=== PATIENT | female | born 1995 | race Caucasian/White ===

== ENCOUNTER 2018-11-04 14:28 | Emergency (ER) | payer MEDICAID ==
[~2018-11-04] VITALS: Ht 154.9 cm; Wt 54.5 kg
[2018-11-04 14:31] VITALS: Ht 154.9 cm; Wt 54.5 kg
--- NOTE | 2018-11-04 16:40 | ERD ---
ER Documentation Chief Complaint Chief Complaint VAG BLEED , ONSET TODAY , 12 WEEKS PREG HPI 23-year-old female with a EGA 12 weeks by LMP 08/13/19, presents the emergency department, complaining of vaginal bleeding that started today. The bleeding is mild, intermittent, associated with colicky pelvic pain. The patient has established care at [facility] she denies fevers, no chills, no abdominal pain, no urinary symptoms. ROS All systems reviewed and are negative except as per history of present illness. Allergies Allergies: Coded Allergies: No Known Allergy (Unverified , 11/04/18) FmHx Family History: No diabetes, No coronary disease Physical Exam Vitals Vital Signs Date Temp Pulse Resp B/P (MAP) Pulse Ox O2 O2 Flow FiO2 Time Delivery Rate 11/04/18 98.0 80 16 102/56 99 Room Air 18:44 (71) 11/04/18 97.8 89 16 122/67 99 14:31 (85) Physical Exam Const: No acute distress Head: Atraumatic Eyes: Normal Conjunctiva ENT: Normal External Ears, Nose and Mouth. Neck: Full range of motion. No meningismus. Resp: Clear to auscultation bilaterally Cardio: Regular rate and rhythm, no murmurs Abd: Soft, non tender, non distended. Normal bowel sounds Skin: No petechiae or rashes Back: No midline or flank tenderness Ext: No cyanosis, or edema Neur: Awake and alert Psych: Normal Mood and Affect Result Diagram: 11/04/18 9298 Results 24 hrs Laboratory Tests Test 11/04/18 16:57 11/04/18 17:05 11/04/18 17:09 11/04/18 17:11 White Blood Count 10.8 10^3/ul Red Blood Count 4.05 10^6/ul Hemoglobin 12.5 g/dl Hematocrit 35.8 % Mean Corpuscular 88.4 fl Volume Mean Corpuscular 30.9 pg Hemoglobin Mean Corpuscular 34.9 g/dl Hemoglobin Concent Red Cell 11.6 % Distribution Width Platelet Count 289 10^3/UL Mean Platelet 10.6 fl Volume Immature 0.500 % Granulocytes % Neutrophils % 66.9 % Lymphocytes % 25.4 % Monocytes % 6.1 % Eosinophils % 0.8 % Basophils % 0.3 % Nucleated Red Blood 0.0 /100WBC Cells % Immature 0.050 10^3/ul Granulocytes # Neutrophils # 7.2 10^3/ul Lymphocytes # 2.7 10^3/ul Monocytes # 0.7 10^3/ul Eosinophils # 0.1 10^3/ul Basophils # 0.0 10^3/ul Nucleated Red Blood 0.0 10^3/ul Cells # Bedside Urine pH 7.0 7.0 (LAB) Bedside Urine Trace 1+ Protein (LAB) Bedside Urine Negative Negative Glucose (UA) Bedside Urine 4+ 4+ Ketones (LAB) Bedside Urine Blood 2+ 3+ Bedside Urine Negative Negative Nitrite (LAB) Bedside Urine Negative Negative Leukocyte Esterase (L POC Beta HCG, POSITIVE Qualitative Patient: EVAN THAKKAR : 1995 Age: 23 Sex: F MR #: [id number] DOS: 11/04/18 1638 Ordering MD: HARINI WOLF MD Location: FTE Room/Bed: PROCEDURE: US OB. CLINICAL INDICATION: Vaginal bleeding in early . TECHNIQUE: Transabdominal views of the pelvis are available for review. COMPARISON: No prior studies are available for comparison. FINDINGS: A single intrauterine gestational sac is evident. [place]-rump length: 7.0 cm Gestational sac diameter: 4.9 cm heart rate: 166 beats per minute. Ultrasound estimated gestational age: 12 weeks 1 day No ovarian or adnexal mass lesion is seen. There is no free fluid. The corpus luteum lies on the left. IMPRESSION: 1. Single live intrauterine with an estimated gestational age of 12 weeks 1 day. This yields an estimated due date of 05/18/2019, concordant with menstrual dates. RPTAT:AAJJ Physician Yolanda Date Time Electronically viewed and signed by Physician Yolanda on 11/04/2018 18:05 Procedures/MDM Vital signs stable, Physical exam unremarkable. Differential diagnosis include but not limited to: UTI, threatening , incomplete versus complete , ectopic , physiologic implantation bleeding, molar . Physical examination and clinical presentation most likely consistent with threatening . During the ED course the patient remained hemodynamically stable and asymptomatic. Results and clinical impression discussed with patient who agrees with management. The patient is stable to be treated outpatient and will be discharged home with close monitoring and follow-up in 2 days with her primary physician. Bed rest and pelvic rest recommended until further medical evaluation. The patient was instructed regarding the outcomes and the potential complicati ons like severe bleeding and . If the patient presents severe bleeding or pain, she was instructed to return to the hospital immediately. Disclaimer: Inadvertent spelling and grammatical errors are likely due to EHR/dictation software use and do not reflect on the overall quality of patient care. Also, please note that the electronic time recorded on this note does not necessarily reflect the actual time of the patient encounter. Departure Diagnosis: Primary Impression: Vaginal bleeding in patient at less than 20 weeks gestation Condition: Stable Additional Instructions: Thank you very much for allowing us to participate in your care. Your health and safety is our top priority at [facility]. Call your primary care doctor TOMORROW for an appointment during the next 2-4 days and bring all the information and medications prescribed. Have prescriptions filled and follow precisely the directions on the label. If the symptoms get worse and your provider is unavailable, return to the Emergency Department immediately. HARINI WOLF MD Nov 04, 2018 16:40
[2018-11-04 18:44] VITALS: BP 102/56; PULSE 80; RESP 16
== END 2018-11-04 18:45 | disposition home or self-care (01) ==
LOC: FTE 14:28
DX: O20.9 Hemorrhage in early pregnancy, unspecified (principal); Z3A.12 12 weeks gestation of pregnancy
CPT/HCPCS: 36415; 76801; 76817; 81003; 81025; 85025; Z7502

== ENCOUNTER 2018-11-22 17:00 | Emergency (ER) | payer MEDICAID ==
[~2018-11-22] VITALS: Wt 54.7 kg
--- NOTE | 2018-11-22 18:21 | ERD ---
ER Documentation Chief Complaint Chief Complaint 16wks ; VB xfew days. ref for US HPI 23-year-old female presents referred by OB for some vaginal spotting. She is 16 weeks by dates. She has no pain. She has no dysuria, fevers, additional symptoms. She is a G2 para 1. She states she is Rh+. ROS All systems reviewed and are negative except as per history of present illness. Allergies Allergies: Coded Allergies: No Known Allergy (Unverified , 11/04/18) PMhx/Soc Medical and Surgical Hx: pt denies Medical Hx, pt denies Surgical Hx Hx Alcohol Use: No Hx Substance Use: No Hx Tobacco Use: No Physical Exam Vitals Vital Signs Date Temp Pulse Resp B/P (MAP) Pulse Ox O2 O2 Flow FiO2 Time Delivery Rate 11/22/18 99.3 71 18 92/52 (65) 98 17:09 Physical Exam Const: No acute distress Head: Atraumatic Eyes: Normal Conjunctiva ENT: Normal External Ears, Nose and Mouth. Neck: Full range of motion. No meningismus. Resp: Clear to auscultation bilaterally Cardio: Regular rate and rhythm, no murmurs Abd: Soft, non tender, non distended. Normal bowel sounds Skin: No petechiae or rashes Back: No midline or flank tenderness Ext: No cyanosis, or edema Neur: Awake and alert Psych: Normal Mood and Affect Procedures/MDM Pelvic ultrasound shows 16-week with placenta previa. There is possibly slight abruption. Otherwise no acute abnormalities are no adnexal masses or signs of ectopic. Since with some vaginal spotting with no pain for last few days. She has good OB follow-up. She has a live 16-week . She will discharged home with primary care follow-up return precautions for fevers, worsening bleeding, pain, new worsening symptoms otherwise as directed. Doubt appendicitis or other causes of abdominal pain. Departure Diagnosis: Primary Impression: Vaginal bleeding in patient at less than 20 weeks ges... Condition: Stable Patient Instructions: Bleeding During Early Referrals: RODERICK MCKEON MD Additional Instructions: emabarazo normal horita. Cheque otro vez con spain doctor primario en el proximo fitzgerald or regresa para mas o nueva simptomas. BRETT SARGENT MD Nov 22, 2018 18:21
[2018-11-22 18:37] VITALS: BP 100/60; PULSE 73; RESP 20
== END 2018-11-22 18:39 | disposition home or self-care (01) ==
LOC: FTE 17:00
DX: O20.9 Hemorrhage in early pregnancy, unspecified (principal); Z3A.16 16 weeks gestation of pregnancy
CPT/HCPCS: 76805; Z7502

== ENCOUNTER 2019-03-21 14:41 | Emergency (ER) | payer MEDICAID ==
[~2019-03-21] VITALS: Wt 67.2 kg
[2019-03-21 14:49] VITALS: BP 101/55; PULSE 84; RESP 20; Wt 67.2 kg
[2019-03-21] MEDS ORDERED: ACETAMINOPHEN 500 MG TAB PO STA (16:29)
[2019-03-21] MEDS ORDERED: ACET325T33 PO (16:31)
[2019-03-21] MEDS ORDERED: CEPH-443 PO (16:33)
--- NOTE | 2019-03-21 17:11 | ERD ---
ER Documentation Chief Complaint Chief Complaint SENT BY CLINIC FOR CP, 33 WKS PREG. PT. STATES CP X1 YEAR, DENIES PAIN NOW HPI History of Present Illness: 23-year-old female who reports that she is approximately 33 weeks coming in today due to complaint of chest pain. Patient denies pain at this time. Patient sent by Dr. SESAY CAR DISPATCHER. Patient reports pain is been present intermittently for the past year but has noticed increased frequency. Denies anxiety or stress at home. Denies shortness of breath, palpitations. At home pharmacological/nonpharmacological treatment for symptoms: Denies Denies social concerns; Denies recent foreign travel ROS All systems reviewed and are negative except as per history of present illness. Medications Home Meds Active Scripts Cephalexin* (Keflex*) 500 Mg Capsule, 500 MG PO TID for URINE INFECTION for 7 Days, CAP Prov:KYLIE WHITLOCK V ADJUNCT ENGLISH INSTRUCTOR 03/21/19 Acetaminophen* (Tylenol*) 325 Mg Tablet, 2 TAB PO Q6 PRN for PAIN AND OR ELEVATED TEMP, #30 TAB Prov:KYLIE WHITLOCK NP 03/21/19 Allergies Allergies: Coded Allergies: No Known Allergy (Unverified , 11/04/18) PMhx/Soc Medical and Surgical Hx: pt denies Medical Hx, pt denies Surgical Hx Hx Alcohol Use: No Hx Substance Use: No Hx Tobacco Use: No Smoking Status: Never smoker FmHx Family History: No diabetes, No coronary disease Physical Exam Vitals Vital Signs Date Temp Pulse Resp B/P (MAP) Pulse Ox O2 O2 Flow FiO2 Time Delivery Rate 03/21/19 98.4 84 20 101/55 98 14:49 (70) Physical Exam Const: No acute distress, afebrile Head: Atraumatic Eyes: Normal Conjunctiva ENT: Normal External Ears, Nose and Mouth. Neck: Full range of motion. No meningismus. Resp: Clear to auscultation bilaterally Cardio: Regular rate and rhythm, no murmurs Abd: Soft, non tender, non distended. Normal bowel sounds. No guarding, no masses, no rigidity. Palpable fundus. Skin: No petechiae or rashes Back: No midline or flank tenderness Ext: No cyanosis, or edema Neur: Awake and alert x3, speaking in clear sentences, no focal deficits or facial asymmetry Psych: Normal Mood and Affect Result Diagram: 03/21/19 1526 03/21/19 1526 Results 24 hrs Laboratory Tests Test 03/21/19 15:26 White Blood Count 12.1 10^3/ul Red Blood Count 3.22 10^6/ul Hemoglobin 10.1 g/dl Hematocrit 29.3 % Mean Corpuscular Volume 91.0 fl Mean Corpuscular Hemoglobin 31.4 pg Mean Corpuscular Hemoglobin Concent 34.5 g/dl Red Cell Distribution Width 12.5 % Platelet Count 265 10^3/UL Mean Platelet Volume 10.5 fl Immature Granulocytes % 3.400 % Neutrophils % 65.8 % Lymphocytes % 20.4 % Monocytes % 8.6 % Eosinophils % 1.1 % Basophils % 0.7 % Nucleated Red Blood Cells % 0.0 /100WBC Immature Granulocytes # 0.410 10^3/ul Neutrophils # 7.9 10^3/ul Lymphocytes # 2.5 10^3/ul Monocytes # 1.0 10^3/ul Eosinophils # 0.1 10^3/ul Basophils # 0.1 10^3/ul Nucleated Red Blood Cells # 0.0 10^3/ul Urine Color YELLOW Urine Clarity SLIGHTLY CLOUDY Urine pH 8.0 Urine Specific [place] 1.009 Urine Ketones NEGATIVE mg/dL Urine Nitrite NEGATIVE mg/dL Urine Bilirubin NEGATIVE mg/dL Urine Urobilinogen NEGATIVE mg/dL Urine Leukocyte Esterase 2+ Mario/ul Urine Microscopic RBC 0 /HPF Urine Microscopic WBC 10 /HPF Urine Squamous Epithelial Cells FEW /HPF Urine Hemoglobin NEGATIVE mg/dL Urine Glucose NEGATIVE mg/dL Urine Total Protein NEGATIVE mg/dl Sodium Level 139 mmol/L Potassium Level 3.5 mmol/L Chloride Level 107 mmol/L Carbon Dioxide Level 23 mmol/L Anion Gap 9 Blood Urea Nitrogen 4 mg/dl Creatinine 0.40 mg/dl Est Glomerular Filtrat Rate mL/min > 60 mL/min Glucose Level 85 mg/dl Calcium Level 9.7 mg/dl Total Bilirubin 0.4 mg/dl Direct Bilirubin 0.00 mg/dl Indirect Bilirubin 0.4 mg/dl Aspartate Amino Transf (AST/SGOT) 18 IU/L Alanine Aminotransferase (ALT/SGPT) 19 IU/L Alkaline Phosphatase 58 IU/L Troponin I < 0.012 ng/ml Total Protein 7.3 g/dl Albumin 3.9 g/dl Globulin 3.40 g/dl Albumin/Globulin Ratio 1.14 Beta HCG, Quantitative 81303.0 mIU/ml Current Medications Medications Dose Sig/[place] Start Time Status Last (Trade) Ordered Route PRN Stop Time Admin Dose Reason Admin 1,000 mg ONCE STAT 03/21/19 DC Acetaminophen PO 16:29 03/21/19 (Tylenol 16:31 Tab) Procedures/MDM ED COURSE: ED course includes a thorough examination and history. The patient was stable throughout ED course. I kept the patient and/or family informed of laboratory and diagnostic imaging results throughout the ED course. ED course for heart tones. LABS: CBC: no e/o of systemic infection or severe anemia CMP: no e/o severe acidosis, alkalosis, renal failure, diabetic ketoacidosis, liver disease Beta quantitative: 18, 856 Urinalysis positive for 2+ leukocyte esterase, 10 WBC Troponin negative. MEDICATIONS GIVEN IN ER: None DIAGNOSTIC IMAGING: EKG: Read by ED attending physician. EKG shows normal sinus rhythm at a rate of 84. No arrhythmias, acute ST elevations or T wave changes were noted. PROCEDURES: None. MEDICAL DECISION MAKING: Low suspicion for life-threatening medical emergency. Low suspicion for acute cardiac emergency. Low suspicion for acute pulmonary emergency including pulmonary embolism. Otherwise healthy patient presenting with constellation of symptoms likely representing nonspecific chest pain and urinary tract infection as characterized by history, physical exam findings, lab findings, imaging findings. Patient reassessment @ 1640: Patient with mild pain. UNReproducible pain with palpation. Nursing staff states that they do not have equipment to do heart tones, so patient discharged to labor and delivery for monitoring. Patient hemodynamically stable without complaint of abdominal pain. No respiratory distress, otherwise relatively well appearing and nontoxic. Disposition given. Patient educated on diagnoses, prescriptions, follow-up care, return precautions. Strict return precautions given for worsening condition; questions answered discharge. Patient verbalizes understanding of discharge instructions. PRESCRIPTIONS FOR HOME: Cephalexin, Acetaminophen DISPOSITION: DISCHARGE At this time, patient is stable for discharge and outpatient management. I have instructed the patient to follow-up with his/her primary care physician in 1-2 days. I have discussed with the patient the possibility of needing to see a specialist for further workup and imaging studies if symptoms persist. I have instructed the patient to promptly return to the ER for any new or worsening symptoms including increased pain, fever, nausea, vomiting, weakness or LOC. The patient and/or family expressed understanding of and agreement with this plan. All questions were answered. Home care instructions were provided. DISCLAIMER: Inadvertent spelling and grammatical errors are likely due to EHR/dictation software use and do not reflect on the overall quality of patient care. Also, please note that the electronic time recorded on this note does not necessarily reflect the actual time of the patient encounter. Departure Diagnosis: Primary Impression: UTI (urinary tract infection) Additional Impression: Chest pain Condition: Stable Patient Instructions: Urinary Tract Infections in Women, Chest Pain, Uncertain Cause Referrals: [facility] YOU HAVE RECEIVED A MEDICAL SCREENING EXAM AND THE RESULTS INDICATE THAT YOU DO NOT HAVE A CONDITION THAT REQUIRES URGENT TREATMENT IN THE EMERGENCY DEPARTMENT. FURTHER EVALUATION AND TREATMENT OF YOUR CONDITION CAN WAIT UNTIL YOU ARE SEEN IN YOUR DOCTORS OFFICE WITHIN THE NEXT 1-2 DAYS. IT IS YOUR RESPONSIBILITY TO MAKE AN APPOINTMENT FOR FOLOW-UP CARE. IF YOU HAVE A PRIMARY DOCTOR --you should call your primary doctor and schedule an appointment IF YOU DO NOT HAVE A PRIMARY DOCTOR YOU CAN CALL OUR PHYSICIAN REFERRAL HOTLINE AT IF YOU CAN NOT AFFORD TO SEE A PHYSICIAN YOU CAN CHOSE FROM THE FOLLOWING [facility] [address] [facility]. [facility] [address] [facility]. [facility] [address] [facility] [address] [facility]. [facility] [address] [facility]. [facility]. [address] [facility]. [facility] YOU HAVE RECEIVED A MEDICAL SCREENING EXAM AND THE RESULTS INDICATE THAT YOU DO NOT HAVE A CONDITION THAT REQUIRES URGENT TREATMENT IN THE EMERGENCY DEPARTMENT. FURTHER EVALUATION AND TREATMENT OF YOUR CONDITION CAN WAIT UNTIL YOU ARE SEEN IN YOUR DOCTORS OFFICE WITHIN THE NEXT 1-2 DAYS. IT IS YOUR RESPONSIBILITY TO MAKE AN APPOINTMENT FOR FOLOW-UP CARE. IF YOU HAVE A PRIMARY DOCTOR --you should call your primary doctor and schedule and appointment IF YOU DO NOT HAVE A PRIMARY DOCTOR YOU CAN CALL OUR PHYSICIAN REFERRAL HOTLINE AT . IF YOU CAN NOT AFFORD TO SEE A PHYSICIAN YOU CAN CHOSE FROM THE FOLLOWING [facility] INSTITUTIONS: [facility] [address] [place] [address] [facility] [address] [place] [address] [facility] [address] [place] [address] Additional Instructions: Muchas goran por permitirnos participar en thurston cuidado. [place] rayo y seguridad es nuestra principal prioridad en [facility]. Es importante leer todas las instrucciones de akua y la educacin que se proporcionan en [place] paquete de akua. Llame a thur[place] mdico de atencin primaria MAANA para rishi sinai isiah los prximos 2 a 4 vivas y lleve toda la informacin y los medicamentos recetados. Llene las recetas y siga exactamente las instrucciones de la etiqueta. -Acetaminofeno cee medicamento para el dolor y / o fiebre. [place] mariangel medicamento segn sea necesario para el dolor leve a moderado. Mariangel medicamento no causar somnolencia. -Cefalexina es un antibitico; tome mariangel medicamento todos los vivas cee se indica en [place] receta. Debe completar todo el curso de tratamiento que figura en [place] receta. [place] es muy importante porque se necesitan varios vivas para eliminar las bacterias que causan la infeccin. Si los sntomas empeoran y thurston proveedor no est disponible, regrese inmediatame nte al Departamento de Emergencias. --- Thank you very much for allowing us to participate in your care. Your health and safety is our top priority at [facility]. It is important to read all discharge instructions and education provided in your discharge packet. Call your primary care doctor TOMORROW for an appointment during the next 2-4 days and bring all the information and medications prescribed. Have prescriptions filled and follow precisely the directions on the label. -Acetaminophen as a medication for pain and/or fever. Take this medication as needed for mild to moderate pain. This medication will not cause drowsiness. -Cephalexin is an antibiotic; take this medication every day as listed on your prescription. You must complete the entire course of treatment that is listed on your prescription this is very important because it takes a certain number of days to kill the bacteria that is causing the infection. If the symptoms get worse and your provider is unavailable, return to the Emergency Department immediately. KYLIE WHITLOCK NP Mar 21, 2019 17:11
== END 2019-03-21 16:51 | disposition home or self-care (01) ==
LOC: FTE 14:41
DX: O23.43 Unspecified infection of urinary tract in pregnancy, third trimester (principal); R07.9 Chest pain, unspecified; Z3A.33 33 weeks gestation of pregnancy
CPT/HCPCS: 80053; 81001; 84484; 84702; 85025; 93005; Z7502

== ENCOUNTER 2019-03-21 17:05 | Outpatient (CLI) | payer MEDICAID ==
[~2019-03-21] VITALS: Ht 152.4 cm; Wt 66.8 kg
[~2019-03-21 17:05] MED LIST: ACET325T33 PO; CEPH-443 PO
[2019-03-21 17:40] VITALS: Ht 152.4 cm; Wt 66.8 kg
[2019-03-21 17:42] VITALS: BP 100/57; PULSE 82; RESP 17
--- NOTE | 2019-03-21 18:18 | PN ---
Triage Information Date/Time Reason for visit: Chest pain Weeks of Gestation 33 weeks /Para -0-0-1 Diabetes: none Hypertention: none Objective Vital Signs Date Temp Pulse Resp B/P (MAP) Pulse Ox O2 O2 Flow FiO2 Time Delivery Rate 03/21/19 98.1 82 17 100/57 Room Air 17:42 (71) Heart Rate: 140's Contractions: None Disposition: Discharge Assessment/Plan 23 years old 2 para 1-0-0-1 with single intrauterine at 33weeks, presented to emergency department with complaint of chest pain. She was evaluated in the emergency department and cleared. Patient transferred to triage for further evaluation of baby. She states good movement. She currently denies nausea, vomiting, shortness of breath, chest pain, headache, visual changes, vaginal bleeding or LOF. -FHR: No sign of metabolic acidosis- Category I -Contractions: None -Ultrasound performed: Normal JOHNATHAN, BPP 8 out of 8 -Symptoms and sign of labor, preeclampsia, kick count discussed with patient, she voiced understanding. All of her questions answered. -Patient was discharged home in stable condition with the appropriate discharge instructions provided. I would like patient to have close follow-up with her primary physician or outpatient clinic in 1-2 days or return to triage for worsening symptoms or any other urgent concerns. MIMI SON Mar 21, 2019 18:18
--- NOTE | 2019-03-21 19:14 | TRIAGE ---
OB Triage Datetime Report Generated by CPN: 03/21/2019 19:14 Datetime: 03/21/2019 19:00 Time of Arrival: 03/21/2019 16:00 EGA: 33.0 Arrived By: Ambulatory Arrived From: Emergency Dept Chief Complaint: pt. to ob triage from ED for evaluate wellbeing, deny uc, deny srom, deny va g. bleeding Movement: Present Contractions: Denies/Absent Rupture of Membranes: Denies Vaginal Discharge: Denies Recent Sexual Intercouse: Denies Abdominal Trauma: Not Applicable Patient Complaints: None Time Provider Notified: 03/21/2019 18:04 Provider Notified: Initial Plan: nst. ofelia Datetime: 03/21/2019 18:44 Labor Evaluation Pattern: Normal: <= 5 Contractions in 10 Minutes Resting Tone Mccloud: Relaxed Contraction Comments: no uc Heart Rate FHR Baseline Rate: 135 Monitor Mode: External US Variability: Moderate 6-25 bpm Accelerations: 15X15 Decelerations: None Category: Category I Pain Assessment Pain Presence: None/Denies Pain Type: N/A Datetime: 03/21/2019 18:30 Assessment Type: Triage Maternal Assessment Level of Consciousness: Keenly Alert, Responsive DTR's/Clonus: DTRs 2+; No Clonus Headache: Denies Blurred Vision: No Respiratory Effort: Unlabored; Regular Rhythm; Equal Expansion Breath Sounds, Left: Clear and Equal Breath Sounds, Right: Clear and Equal Nausea/Vomiting: Denies RUQ Epigastric Pain: Denies Lower Extremities Edema: None Degree: None Facial Edema: None Fall Risk Assessment History of Falling: (0) No Secondary Diagnosis: (0) No Ambulatory Aid: (0) Bedrest/Nurse Assist IV Therapy: (0) No Gait: (0) Normal/Bedrest/Immobile Mental Status: (0) Oriented to Own Ability Fall Score: 0 Fall Risk Score Definition: No Risk: No action required Datetime: 03/21/2019 18:02 Labor Evaluation Pattern: Normal: <= 5 Contractions in 10 Minutes Resting Tone Mccloud: Relaxed Contraction Comments: no uc Heart Rate FHR Baseline Rate: 135 Monitor Mode: External US Variability: Moderate 6-25 bpm Accelerations: 15X15 Decelerations: None Category: Category I Pain Assessment Pain Presence: None/Denies Pain Type: N/A
== END 2019-03-21 19:15 | disposition home or self-care (01) ==
LOC: OBT 17:05 → L-D 17:06 → OBT 19:15
PROVIDERS: ATTEND Obstetrics & Gynecology
DX: O26.893 Other specified pregnancy related conditions, third trimester (principal); R07.9 Chest pain, unspecified; Z3A.33 33 weeks gestation of pregnancy
CPT/HCPCS: 76815; Z7500; G0463

== ENCOUNTER 2019-05-10 08:00 | Inpatient (IN) | payer MEDICAID ==
[~2019-05-10] VITALS: Ht 157.5 cm; Wt 69.8 kg
[~2019-05-10 08:00] MED LIST changes: +DOCU-144 PO; +FER325 PO; +IBUP-1542 PO
[2019-05-10] MEDS ORDERED: LACTATED RINGER'S 1,000 ML IV PRN (08:14)
[2019-05-10 08:18] VITALS: Ht 157.5 cm; Wt 69.8 kg
[2019-05-10] MEDS ORDERED: LIDOCAINE 1% (MPF) 30 ML INJ INJ PRN (08:30)
[2019-05-10] MEDS ORDERED: IBUPROFEN 600 MG TAB PO PRN (08:30)
[2019-05-10] MEDS ORDERED: CARBOPROST 250 MCG/ML VIAL IM PRN (08:30)
[2019-05-10] MEDS ORDERED: OXYTOCIN 30 UNITS/LR 500 ML IV SCH ×2 (08:30)
[2019-05-10] MEDS ORDERED: AMPICILLIN 2 GM/NS (PMX) 100 ML IV ONE (08:30)
[2019-05-10] MEDS ORDERED: BUTORPHANOL 2 MG INJ IV PRN ×2 (08:30)
[2019-05-10] MEDS ORDERED: OXYTOCIN 30 UNITS/LR 500 ML IV PRN (08:30)
[2019-05-10] MEDS ORDERED: METHYLERGONOVINE 0.2 MG INJ IM PRN (08:30)
[2019-05-10] MEDS ORDERED: MISOPROSTOL 200 MCG TAB PR PRN (08:30)
[2019-05-10] MEDS: LACTATED RINGER'S 1,000 ML IV SCH ×2 (09:25→19:24)
[2019-05-10] MEDS: MISOPROSTOL 50 MCG CAPSULE PO SCH ×2 (10:58→15:52)
[2019-05-10] MEDS ORDERED: AMPICILLIN 1 GM/NS (PMX) 50 ML IV SCH (12:30)
[2019-05-10] MEDS: AMPICILLIN 1 GM/NS (PMX) 50 ML IV SCH ×3 (13:32→21:28)
[2019-05-11] MEDS ORDERED: MINERAL OIL LIGHT 10 ML VIAL TOP PRN (01:30)
[2019-05-11] MEDS ORDERED: MINERAL OIL LIGHT 10 ML VIAL TOP ONE (02:00)
[2019-05-11] MEDS: LANOLIN HPA 1 PKT TOP PRN (03:23)
[2019-05-11] MEDS: BENZOCAINE 20% 56 ML SPRAY TOP PRN (03:23)
[2019-05-11 03:30] VITALS: BP 106/57; PULSE 72; RESP 18
[2019-05-11] MEDS ORDERED: OXYCODONE/ASPIRIN (4.88/325) TAB PO PRN ×2 (03:30)
[2019-05-11] MEDS ORDERED: OXYTOCIN 30 UNITS/LR 500 ML IV PRN (03:30)
[2019-05-11] MEDS ORDERED: WITCH HAZEL/GLYCERIN PAD PR PRN (03:30)
[2019-05-11] MEDS ORDERED: CARBOPROST 250 MCG/ML VIAL IM PRN (03:30)
[2019-05-11] MEDS ORDERED: METHYLERGONOVINE 0.2 MG INJ IM PRN (03:30)
[2019-05-11] MEDS ORDERED: ZOLPIDEM 5 MG TAB PO PRN (03:30)
[2019-05-11] MEDS ORDERED: MISOPROSTOL 200 MCG TAB PR PRN (03:30)
[2019-05-11] MEDS: IBUPROFEN 600 MG TAB PO SCH ×4 (06:00→23:42)
[2019-05-11 08:00] VITALS: BP 99/58; PULSE 100; RESP 20
[2019-05-11] MEDS: SENNA/DOCUSATE NA (8.6MG/50MG) TAB PO SCH ×2 (09:20→21:00)
[2019-05-11 16:00] VITALS: BP 100/55; PULSE 79; RESP 18
[2019-05-11 20:30] VITALS: BP 103/57; PULSE 80; RESP 18
[2019-05-12] VITALS: BP 104/56; PULSE 76; RESP 18
[2019-05-12 03:40] VITALS: BP 100/51; PULSE 66; RESP 18
[2019-05-12] MEDS: IBUPROFEN 600 MG TAB PO SCH ×2 (06:47→11:42)
[2019-05-12 08:00] VITALS: BP 96/51; PULSE 73; RESP 16
[2019-05-12] MEDS: SENNA/DOCUSATE NA (8.6MG/50MG) TAB PO SCH (08:25)
[2019-05-12] MEDS: LANOLIN HPA 1 PKT TOP PRN (08:25)
[2019-05-12] MEDS: BENZOCAINE 20% 56 ML SPRAY TOP PRN (14:55)
[2019-05-12 16:00] VITALS: BP 107/66; PULSE 88; RESP 18
[2019-05-13] MEDS ORDERED: DIPHTH/TET/ACEL PERTUSS (ADULT) 0.5 ML VIAL IM* ONE (09:00)
== END 2019-05-12 17:45 | disposition home or self-care (01) | DRG 806 ==
LOC: L-D 08:05 → PP1 05-11 03:12
PROVIDERS: ADMIT Obstetrics & Gynecology; ATTEND Obstetrics & Gynecology
PROC: 10E0XZZ Delivery of Products of Conception, External Approach (ICD-10-PCS; principal; 2019-05-11)
PROC: 0HQ9XZZ Repair Perineum Skin, External Approach (ICD-10-PCS; 2019-05-11)
DX: O48.0 Post-term pregnancy (principal); D62 Acute posthemorrhagic anemia; O70.9 Perineal laceration during delivery, unspecified; O99.02 Anemia complicating childbirth; O99.824 Streptococcus B carrier state complicating childbirth; Z37.0 Single live birth; Z3A.40 40 weeks gestation of pregnancy
CPT/HCPCS: 76815; 85025; 85610; 85730; 86592; 86850; 86900; 86901; 99464; J0290; J0595; J2590; J7120